=== PATIENT | male | born 1940 | race Caucasian/White ===

== ENCOUNTER → 2018-09-03 | Outpatient (CLI) | payer MEDICARE ==
--- NOTE | 2018-09-03 11:29 | Diagnostic Imaging Report ---
Exam: Lumbar spine MRI without IV contrast History: Lower back pain, prior surgery Comparison studies: None Technique: Sagittal and axial T2 , sagittal T1 and IR, axial spin density oblique. Intravenous contrast: None Findings: Number of lumbar vertebral bodies: 5. Alignment: Normal lumbar lordosis. Mild lumbar curvature convex to the left centered at L3. Minimal grade 1 retrolisthesis of L2 on L3 and grade 1 anterolisthesis of L4 on L5 and L5 on S1. Soft tissues and paraspinal muscles: Postsurgical changes in the dorsal lumbar soft tissues related to prior laminotomy at L2-L3 and laminectomies at L3-L4 and L4-L5. There is moderate to severe symmetric dorsal paraspinal muscle atrophy. Lower thoracic cord: Normal in signal and morphology. The tip of the conus is at T12-L1. Cauda equina: No masses. No arachnoiditis. Vertebrae: No compression fracture, infection or neoplasm. Incidental benign T1 hyperintense vertebral body hemangioma. Degenerative changes: Small shallow degenerative endplate Schmorl's nodes from T10 through L3. T10-T11: Moderately degenerated disc. Patent canal and foramina. T11-T12 through L1-L2: Mildly degenerated disks. Patent canal and foramina. L2-L3: Moderately degenerated disc. Degenerative endplate changes with mild endplate edema on the left. Minimal retrolisthesis of L2 on L3 with associated disc osteophyte complex, thickened ligamentum flavum and moderate facet arthrosis with moderate to severe bilateral foraminal stenosis. No significant canal stenosis. Prior left laminotomy. L3-L4: Mildly degenerated disc. Mildly degenerated disc. Disc osteophyte complex and severe facet arthrosis with severe right and moderate to severe left foraminal stenosis. Canal decompressed by laminectomies. There is a small right facet effusion. L4-L5: Grade 1 anterolisthesis of L4 on L5 with associated uncovered disc/disc bulge and severe facet arthrosis with moderate to severe bilateral foraminal stenosis. Canal decompressed by laminectomies. Bilateral facet effusions result in mild widening of the facet joints. L5-S1: Mildly degenerated disc. Minimal anterolisthesis of L5 on S1 with associated uncovered disc and bilateral facet arthrosis with mild bilateral foraminal stenosis. No significant canal stenosis. Included sacroiliac joints: Degenerative changes bilaterally. No joint effusion. IMPRESSION: 1. Degenerative changes with multilevel disc degeneration, multilevel advanced facet arthrosis and varying degrees of moderate to severe foraminal stenosis from L2 to L5. No significant canal stenosis. 2. Prior L2-L3 laminotomy and laminectomies at L3-L4 and L4-L5. Signed by: Dr. Brandon Avalos M.D. on 09/03/2018 11:26 AM
== END ==
LOC: MRI 08:17
PROVIDERS: ATTEND Family Medicine
DX: M54.17 Radiculopathy, lumbosacral region (principal)
CPT/HCPCS: 72148

== ENCOUNTER 2021-04-18 13:45 | Outpatient (RCR) | payer MEDICARE | END 2021-04-21 | LOC: PT 13:45 | PROVIDERS: ATTEND Family Medicine | DX: G62.9 Polyneuropathy, unspecified (principal); R26.9 Unspecified abnormalities of gait and mobility ==

== ENCOUNTER 2021-05-09 12:51 | Outpatient (RCR) | payer MEDICARE | END 2021-05-21 | LOC: PT 12:51 | PROVIDERS: ATTEND Family Medicine | DX: R26.9 Unspecified abnormalities of gait and mobility (principal); G62.9 Polyneuropathy, unspecified ==